=== PATIENT | male | born 1955 | race Caucasian/White ===

== ENCOUNTER 2020-01-17 10:50 | Emergency (ER) | payer OTHER, SELFPAY ==
--- NOTE | ~2020-01-17 | XR_ITS ---
EXAMINATION: XR elbow RT min 3V DATE: 01/17/2020 11:11 INDICATION: Right elbow pain. TECHNIQUE: 4 views of right elbow were obtained. COMPARISON: None. FINDINGS: Bone alignment is normal. No visible fracture. Joint spaces are normal. There is an elbow j oint effusion. IMPRESSION: 1. Elbow joint effusion. No fracture identified. Reviewed, dictated and finalized at location A.
--- NOTE | 2020-01-17 10:53 | ED.GENADULT ---
HPI - General Adult General Chief complaint: Extremity Injury, Upper Stated complaint: Right elbow pain Time Seen by Provider: 01/17/20 10:53 Source: patient Mode of arrival: ambulatory Limitations: no limitations History of Present Illness HPI narrative: 64-year-old male patient presents to the [facility] with complaints of right elbow pain that started yesterday. Patient states that he was lifting a big concrete fountain and heard a slight pop to the right elbow. Patient states he woke up this morning and noticed increasing pain to the right elbow. Patient states it does hurt when he bends it and states he is not able to fully extend the elbow. Denies taking anything for pain so far. Related Data Home Medications Medication Instructions Recorded Confirmed losartan 01/17/20 Allergies Allergy/AdvReac Type Severity Reaction Status Date / Time No Known Allergies Allergy Verified 01/17/20 10:56 Review of Systems Review of Systems: Narrative: CONSTITUTIONAL: Denies fever, chills, or sweats. EYES: Denies visual changes, redness, or discharge. ENT: Denies rhinorrhea, congestion, sore throat, or otalgia. CARDIOVASCULAR: Denies chest pain, palpitations, or edema. RESPIRATORY: Denies cough or dyspnea. GASTROINTESTINAL: Denies abdominal pain, nausea, vomiting, or diarrhea. GENITOURINARY: Denies dysuria or hematuria. SKIN: Denies rash or itching. MUSCULOSKELETAL: Denies back pain, joint pain, or myalgia. Positive right elbow pain NEUROLOGIC: Denies headache, numbness, or weakness. PSYCHIATRIC: Denies anxiety or depression. PMFSH Social History Social History Gender identity (if verbalized by the patient): Male Comments At the time of my signature I agree with nursing past medical history, surgical, social, and family history. There is no relevant family history pertinent to the presenting complaint. Exam Narrative: Exam Narrative: GENERAL: Well-appearing, well-nourished, and in no acute distress. HEAD: Normocephalic, atraumatic. EYES: PERRLA and EOMI. ENT: Nares clear, no rhinorrhea or epistaxis. Mucous membranes moist. NECK: Supple. No lymphadenopathy CHEST: Clear to auscultation. No respiratory distress. HEART: Regular rate and rhythm. No murmur heard. Normal peripheral pulses. ABDOMEN: Soft, nontender, nondistended, normal active bowel sounds. EXTREMITIES: The R elbow is without obvious asymmetry or deformity when compared to the L elbow. No obvious surface trauma, ecchymosis or soft tissue swelling. No bony tenderness to palpation of the lateral or medial epicondyle, olecranon, or radial head. No epicondylar or axillary lymphadenopathy. Normal flexion, unable to fully extend the right arm, slight pain with supination, no pain with pronation. Normal muscle strength. Intact motor and sensation of ulnar, median, and radial nerves. SKIN: Warm, dry, no rash. NEURO: No focal deficits. Alert and oriented x3. Course Reevaluation(s) Reevaluation #1: Reevaluated patient after his x-ray had resulted. Discussed with him that the x-ray shows a joint effusion to the elbow which could be was causing the pain. Discussed with him that we will go ahead and wrap the right elbow with an Ralph wrap. Discussed with him he can take Tylenol and ibuprofen as needed for the pain, I would recommend ice to the area as well to help with the swelling and pain. Discussed with patient that this typically will go away on its own but he needs to be looking out for worsening swelling, worsening pain with movement to the elbow or feeling that the joint is very hot to touch and if that occurs he needs to go the ER for further evaluation and treatment. Patient verbalized understanding of this denies any other questions or concerns at this time. Date: 01/17/20 Time: 11:24 Vital Signs Vital signs: Vital Signs Temperature 37.2 C 01/17/20 10:59 Pulse Rate 91 01/17/20 10:59 Respiratory Rate 18
[2020-01-17 10:59] VITALS: BP 171/99; PULSE 91; RESP 18; TEMP 37.2; O2SAT 98
== END 2020-01-17 11:40 | disposition home or self-care (01) ==
PROVIDERS: Emergency Provider Nurse Practitioner Family; PCP Family Medicine
DX: M25.421 Effusion, right elbow (principal); E78.00 Pure hypercholesterolemia, unspecified; I10 Essential (primary) hypertension
CPT/HCPCS: 73080; 99213; G0463

== ENCOUNTER 2021-02-05 19:03 | Emergency (ER) | payer OTHER, SELFPAY ==
--- NOTE | ~2021-02-05 | XR_ITS ---
EXAMINATION: XR finger 2nd RT min 2V INDICATION: Right second finger pain, hyperabduction injury TECHNIQUE: Four views of the right third finger are obtained. COMPARISON: None available FINDINGS: There is a 1.5 mm heterotopic ossification projecting lateral to the head of the second met acarpal. There is mild soft tissue swelling of the second finger. Bone alignment is normal. The joint spaces are maintained. IMPRESSION: 1. Tiny heterotopic ossification near the lateral head of the second metacarpal of unclear etiology, possible avulsion. Correlate for tenderness at this site. Reviewed, dictated and finalized at location A.
[2021-02-05 19:12] VITALS: BP 154/84; PULSE 86; RESP 18; TEMP 36.6; O2SAT 99
--- NOTE | 2021-02-05 19:13 | ED.UPPEXIN ---
HPI - Extremity Injury (Upper) General Chief Complaint: Extremity Injury, Upper Stated Complaint: Possible injury to right Hand Time Seen by Provider: 02/05/21 19:23 Source: patient and RN notes reviewed Mode of arrival: ambulatory Limitations: no limitations History of Present Illness HPI narrative: 65-year-old male presents with concern for injury to the right hand. Reports proximate 2 to 3 weeks ago he injured his hand on a gait feeling a pop and a snap above the PIP joint of the second digit of the right hand. He denies intervention. Reports symptoms have not been getting better and he felt pain today and decided to be evaluated. Denies decreased sensation, strength, range of motion in the digit. MD complaint: injury to: right and hand Related Data Home Medications Medication Instructions Recorded Confirmed losartan 01/17/20 omega-3 fatty acids-vitamin E 2,000 cap PO DAILY 02/05/21 02/05/21 [Fish Oil] Allergies Allergy/AdvReac Type Severity Reaction Status Date / Time No Known Allergies Allergy Verified 02/05/21 19:19 Review of Systems Review of Systems: CONSTITUTIONAL: Denies malaise, chills, sweats, or fever. SKIN: Denies abrasions, lacerations MUSCULOSKELETAL: Reports pain about the PIP joint of the second digit of the right hand NEUROLOGIC: Denies numbness, weakness All systems reviewed & are unremarkable except as noted in HPI and below PMFSH Social History Social History Gender identity (if verbalized by the patient): Male Comments At time of signature, agree with nursing past medical, surgical, social and family history. There is no relevant family history pertinent to the presenting complaint Exam Narrative: GENERAL: Well-appearing, well-nourished, and in no acute distress. HEAD: Normocephalic EYES: PERRLA, conjunctivae clear NECK: Supple. CHEST: Speaks in full sentences. No respiratory distress. HEART: Regular rate and rhythm. Normal and equal peripheral pulses. EXTREMITIES: Right hand and digits of hand have normal strength and sensation. 5/5 strength with digit flexion, extension. Range of motion normal. No clubbing, cyanosis, or edema noted. Mild dorsal tenderness above the PIP joint of the second digit of the right hand via. Skin intact. Normal digital cascade with flexion of fingers, median, ulnar and radial nerve intact. Normal sensation of each side of finger. Can perform 'okay' sign, 'cross over finger test of index and middle fingers' and 'thumbs up' sign. No scissoring. Normal thumb opposition. Good capillary refill and radial pulse. Distal capillary refill less than 3 seconds. SKIN: Warn, dry, intact, pink. No rash NEURO: Alert and oriented x3. PSYCH: Normal mood and affect Course Course Emergency Course: Patient is aware of diagnosis, understands and agrees to treatment plan. Anticipatory guidance given. Patient agrees to follow-up as directed and is aware of reasons to seek care at the emergency department. Portions of this record may have been created with voice recognition software Vital Signs Vital signs: Reviewed. Pt has been instructed to follow up with his primary care provider within the next week regarding his elevated blood pressure today. MDM - Extremity Injury (Upper) MDM Narrative Medical decision making narrative: Patients injury and pain is consistent with musculoskeletal etiology. No signs of neurological or vascular compromise on exam. Compartments and tissues are soft without signs of compartment syndrome. Pain is felt appropriate for further evaluation on an outpatient basis. Imaging Data My impression: Images reviewed, interpreted by radiologist, agree, see report. Radiologist's impression: EXAMINATION: XR finger 2nd RT min 2V INDICATION: Right second finger pain, hyperabduction injury TECHNIQUE: Four views of the right third finger are obtained. COMPARISON: None available FINDINGS: There is a 1.5 m
[2021-02-05 19:22] VITALS: BP 154/84; PULSE 86; RESP 18; TEMP 36.6; O2SAT 99
== END 2021-02-05 19:46 | disposition home or self-care (01) ==
PROVIDERS: Emergency Provider Nurse Practitioner; PCP Family Medicine
DX: S69.91XA Unspecified injury of right wrist, hand and finger(s), initial encounter (principal); W22.8XXA Striking against or struck by other objects, initial encounter; E78.00 Pure hypercholesterolemia, unspecified; I10 Essential (primary) hypertension
CPT/HCPCS: 29130; 73140; 99213; G0463

== ENCOUNTER 2022-07-03 14:23 | Emergency (ER) | payer OTHER, SELFPAY ==
[2022-07-03 14:35] VITALS: BP 157/83; PULSE 83; RESP 16; TEMP 36.8; O2SAT 96
--- NOTE | 2022-07-03 16:09 | ED.NAVMDI ---
HPI - Nausea/Vomiting/Diarrhea General Chief complaint: Nausea/Vomiting/Diarrhea Stated complaint: check oxygen levels, blood in bowels Time Seen by Provider: 07/03/22 16:10 Source: patient, RN notes reviewed and old records reviewed Mode of arrival: ambulatory Limitations: no limitations History of Present Illness HPI Narrative: 66 year old male who [facility] with complaints of having diarrhea last week and having blood noted in his stool the past 3-4 days. He denies any sharp pain or any nausea or vomiting. Patient reports that initially one week ago he ate at [employer] in [place] and had large salad and lots of Pizza, the next day he started with diarrhea that lasted till Sunday when his stools became more firm but then he noted some blood in his stools small to moderate amounts, Patient reports that he has an appt with his dr on Sunday. Patient reports that he has done Cologuard screening in past with no abnormality noted. MD elicited complaint: diarrhea and other (blood noted in stool) Onset (ago): day(s) (3-4 days blood in stools, 1 week of diarrhea) Treatment prior to arrival: other (started Prilosec) Related Data Home Medications Medication Instructions Recorded Confirmed losartan 100 mg PO DAILY 01/17/20 02/05/21 omega-3 fatty acids-vitamin E 2,000 cap PO DAILY 02/05/21 02/05/21 1,000 mg capsule Allergies Allergy/AdvReac Type Severity Reaction Status Date / Time No Known Allergies Allergy Verified 02/05/21 19:19 Review of Systems Review of Systems: CONSTITUTIONAL: Denies fever, chills, or sweats. EYES: Denies visual changes, redness, or discharge. ENT: Denies rhinorrhea, congestion, sore throat, or otalgia. CARDIOVASCULAR: Denies chest pain, palpitations, or edema. RESPIRATORY: Denies cough or dyspnea. GASTROINTESTINAL: Denies abdominal pain, nausea, vomiting, positive for diarrhea for one week with blood noted in stool for 3-4 days GENITOURINARY: Denies dysuria or hematuria. SKIN: Denies rash or itching. MUSCULOSKELETAL: Denies back pain, joint pain, or myalgia. NEUROLOGIC: Denies headache, numbness, or weakness. PSYCHIATRIC: Denies anxiety or depression. All systems reviewed & are unremarkable except as noted in HPI and below PMFSH Social History Social History Gender identity (if verbalized by the patient): Male Comments At time of signature, agree with nursing past medical, surgical, social and family history. There is no relevant family history pertinent to the presenting complaint Exam Narrative: GENERAL: Well-appearing, well-nourished, and in no acute distress.denies any weakness HEAD: Normocephalic, atraumatic. EYES: PERRLA and EOMI. mucous membranes moist, conjunctiva pink ENT: Nares clear, no rhinorrhea or epistaxis. Mucous membranes moist.TM's normal with good light reflex, throat pink with no swelling NECK: Supple.no lymphadenopathy CHEST: Clear to auscultation. No respiratory distress.SAO2 96% on room air, denies any shortness of breath HEART: Regular rate and rhythm. No murmur heard. Normal peripheral pulses. ABDOMEN: Soft, nontender, nondistended, normal active bowel sounds. episodes of diarrhea and some blood noted in stool EXTREMITIES: Normal range of motion. No edema. SKIN: Warm, dry, no rash. NEURO: No focal deficits. Alert and oriented x3. Course Course Level of Care: Express Care Visit Vital Signs Vital signs: Vital Signs Temperature 36.8 C 07/03/22 14:35 Pulse Rate 83 07/03/22 14:35 Respiratory Rate 16 07/03/22 14:35 Blood Pressure 157/83 H 07/03/22 14:35 Pulse Oximetry 96 07/03/22 14:35 Oxygen Delivery Room Air 07/03/22 14:35 Temperature 36.8 C 07/03/22 14:35 Pulse Rate 83 07/03/22 14:35 Respiratory Rate 16 07/03/22 14:35 Blood Pressure 157/83 H 07/03/22 14:35 Pulse Oximetry 96 07/03/22 14:35 Oxygen Delivery Room Air 07/03/22 14:35 MDM - Nausea/Vo
== END 2022-07-03 16:52 | disposition home or self-care (01) ==
PROVIDERS: Emergency Provider Registered Nurse
DX: R19.7 Diarrhea, unspecified (principal); K92.1 Melena; E78.00 Pure hypercholesterolemia, unspecified; I10 Essential (primary) hypertension
CPT/HCPCS: 99211; G0463